=== PATIENT | male | born 1970 | race Caucasian/White ===

== ENCOUNTER 2019-01-27 19:14 | Emergency (ER) | payer OTHER ==
[~2019-01-27] VITALS: Ht 177.8 cm; Wt 88.2 kg
[2019-01-27] MEDS ORDERED: BACL1TAB9 PO (19:57)
[2019-01-27] MEDS ORDERED: CRES10TA32 PO (19:57)
[2019-01-27] MEDS ORDERED: GABA-845 PO (19:57)
[2019-01-27] MEDS ORDERED: AMIT75TA PO (19:57)
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
[2019-01-27 22:04] VITALS: BP 131/74
== END 2019-01-27 22:06 | disposition home or self-care (01) ==
LOC: M ED 19:14
DX: S13.9XXA Sprain of joints and ligaments of unspecified parts of neck, initial encounter (principal); V43.52XA Car driver injured in collision with other type car in traffic accident, initial encounter; Y92.410 Unspecified street and highway as the place of occurrence of the external cause; F17.200 Nicotine dependence, unspecified, uncomplicated